=== PATIENT | female | born 1995 | race Two or more races ===

== ENCOUNTER 2018-11-14 18:55 | Emergency (ER) | payer SELFPAY ==
[2018-11-14 19:10] VITALS: BP 115/71
[2018-11-14] MEDS ORDERED: Sodium Chloride 0.9% 10 ML Syringe FLUSH PRN (20:08)
--- NOTE | 2018-11-14 20:15 | EDM.PDOC ---
ED HPI GENERAL MEDICAL PROBLEM - General Chief Complaint: Chest Pain Stated Complaint: CHEST PAIN AND PAIN IN LEFT ARM Time Seen by Provider: 11/14/18 19:55 Source of Information: Reports: Patient, RN, RN Notes Reviewed History Limitations: Reports: No Limitations - History of Present Illness INITIAL COMMENTS - FREE TEXT/NARRATIVE: Lesly Bermudez is a 23 yo female who presents for ED today complaining of chest pain that is started since this a.m. She reports the pain is in her left side of her chest and radiates up into her left neck and down her left arm. She reports that she has had similar symptoms in the past and has been an ongoing issue for years. She reports the pain is constant, tight and does lead to a sore shoulder and numb arm. She denies any recent from a period she states the pain has been worsening throughout the day and she has been worried. She does report shortness of breath which accompanies pain. Pain is noted to improve when she pushes on her left chest. Pain is rated at 8/10. Denies any chronic medications. She does have a history of anxiety and depression. She does not have a PCP. She has no known drug allergies. She denies any diarrhea , constipation, heartburn, vomiting. She does report occasional nausea. She also reports upper left quadrant abdominal pain. She denies any recent travel. She is not on any control. She denies any ETOH use. Treatments MACHINE MARKER: Reports: Other (see below) Other Treatments MACHINE MARKER: none Left Chest Pain Score (Numeric/FACES): 8 - Related Data Allergies Allergy/AdvReac Type Severity Reaction Status Date / Time No Known Allergies Allergy Verified 03/19/15 17:13 Home Meds: Home Meds . [No Known Home Meds] 09/27/15 [History] Past Medical History - Past Health History Medical/Surgical History: Denies Medical/Surgical History Psychiatric History: Reports: Depression Social & Family History - Tobacco Use Smoking Status *Q: Never Smoker - Caffeine Use Caffeine Use: Reports: None - Recreational Drug Use Recreational Drug Use: No ED ROS GENERAL - Review of Systems Review Of Systems: See Below Constitutional: Denies: Fever, Chills, Malaise, Weakness, Fatigue, Decreased Appetite HEENT: Reports: Other (Jaw pain ) Respiratory: Reports: Shortness of Breath (occasional ), Pleuritic Chest Pain. Denies: Wheezing, Cough, Sputum Cardiovascular: Reports: Chest Pain (left sided ). Denies: Dyspnea on Exertion , Lightheadedness, Palpitations Endocrine: Reports: No Symptoms GI/Abdominal: Reports: Abdominal Pain (LUQ ) : Reports: No Symptoms Musculoskeletal: Reports: Arm Pain Skin: Reports: No Symptoms Neurological: Reports: No Symptoms Psychiatric: Reports: Anxiety, Depression ED EXAM, GENERAL - Physical Exam Exam: See Below Exam Limited By: No Limitations General Appearance: Alert, WD/WN, No Apparent Distress Head: Atraumatic, Normocephalic Neck: Normal Inspection, Supple, Non-Tender, Full Range of Motion Respiratory/Chest: No Respiratory Distress, Lungs Clear, Normal Breath Sounds, No Accessory Muscle Use, Chest Non-Tender Cardiovascular: Normal Peripheral Pulses, Regular Rate, Rhythm, No Edema, No Gallop, No JVD, No Murmur, No Rub Peripheral Pulses: 4+: Radial (L), Radial (R), Dorsalis Pedis (L), Dorsalis Pedis (R) GI/Abdominal: Normal Bowel Sounds, Soft, Non-Tender, No Distention, No Abnormal Bruit (Female) Exam: Deferred Back Exam: Normal Inspection, Full Range of Motion, CVA Tenderness (L). No: CVA Tenderness (R) Extremities: Normal Inspection, Normal Range of Motion, Non-Tender, Normal Capillary Refill, No Pedal Edema Neurological: Alert, Oriented, CN II-XII Intact, Normal Cognition, Normal Gait, Normal Reflexes, No Motor/Sensory Deficits Psychiatric: Flat Affect Skin Exam: Warm, Dry, Intact, Normal Color, No Rash EKG INTERPRETATION EKG Date: 11/14/17 Time: 20:12 Rhythm: NSR Rate (Beats/Min): 64 [place]: Normal P-Wave: Present QRS: Normal ST-T: Normal QT: Normal Comparison: No Change (from prior EKG obtained 10/16/14) EKG Interpretation Comments: Sinus rhythm; Low voltage, precordial leads Course - Vital Signs Last Recorded V/S: Last Vital Signs Temp 98.7 F 11/14/18 19:07 Pulse 73 11/14/18 19:07 Resp 20 11/14/18 19:07 BP 115/71 11/14/18 19:07 Pulse Ox 98 11/14/18 19:07 - Orders/Labs/Meds Orders: Active Orders 24 hr Category Date Time Status EKG 12 Lead [EKG Documentation Completion] [RC] STAT Care 11/14/18 20:06 Active Peripheral IV Care [RC] . DIRECTED Care 11/14/18 20:09 Active Chest 2V [CR] Stat Exams 11/14/18 20:08 Taken Sodium Chloride 0.9% [Saline Flush] Med 11/14/18 20:08 Active 10 ml FLUSH ASDIRECTED PRN Peripheral IV Insertion Adult [OM.PC] Routine Oth 11/14/18 20:08 Ordered Medication Orders Sodium Chloride (Saline Flush) 10 ml FLUSH ASDIRECTED PRN PRN Reason: Keep Vein Open Last Admin: 11/14/18 20:44 Dose: 10 ml Labs: Laboratory Tests 11/14/18 11/14/18 11/14/18 Range/Units 20:17 20:25 20:25 WBC 8.54 (3.98-10.04) K/mm3 RBC 4.66 (3.98-5.22) M/mm3 Hgb 13.6 (11.2-15.7) gm/L Hct 41.1 (34.1-44.9) % MCV 88.2 (79.4-94.8) fl MCH 29.2 (25.6-32.2) pg MCHC 33.1 (32.2-35.5) g/dl RDW Std Deviation 41.3 (36.4-46.3) fL Plt Count 371 H (182-369) K/mm3 MPV 10.7 (9.4-12.3) fl Neut % (Auto) 51.5 (34.0-71.1) % Lymph % (Auto) 36.9 (19.3-51.7) % [place] % (Auto) 9.6 (4.7-12.5) % Eos % (Auto) 1.4 (0.7-5.8) Baso % (Auto) 0.4 (0.1-1.2) % Neut # (Auto) 4.40 (1.56-6.13) K/mm3 Lymph # (Auto) 3.15 (1.18-3.74) K/mm3 [place] # (Auto) 0.82 H (0.24-0.36) K/mm3 Eos # (Auto) 0.12 (0.04-0.36) K/mm3 Baso # (Auto) 0.03 (0.01-0.08) K/mm3 Sodium 141 (136-145) mEq/L Potassium 3.7 (3.5-5.1) mEq/L Chloride 106 (98-107) mEq/L Carbon Dioxide 25 (21-32) mEq/L Anion Gap 13.7 (5-15) BUN 8 (7-18) mg/dL Creatinine 0.6 (0.55-1.02) mg/dL Est Cr Clr Drug Dosing 125.92 mL/min Estimated GFR (MDRD) > 60 (>60) mL/min BUN/Creatinine Ratio 13.3 L (14-18) Glucose 76 (74-106) mg/dL Calcium 9.6 (8.5-10.1) mg/dL Total Bilirubin 0.4 (0.2-1.0) mg/dL AST 23 (15-37) U/L ALT 34 (14-59) U/L Alkaline Phosphatase 111 (46-116) U/L Troponin I < 0.017 (0.00-0.056) ng/mL Total Protein 8.6 H (6.4-8.2) g/dl Albumin 4.2 (3.4-5.0) g/dl Globulin 4.4 gm/dL Albumin/Globulin Ratio 1.0 (1-2) Lipase 107 (73-393) U/L Urine Color Yellow (Yellow) Urine Appearance Clear (Clear) Urine pH 7.0 (5.0-8.0) Ur Specific Hydes 1.015 (1.005-1.030) Urine Protein Negative (Negative) Urine Glucose (UA) Negative (Negative) Urine Ketones Negative (Negative) Urine Occult Blood 1+ H (Negative) Urine Nitrite Negative (Negative) Urine Bilirubin Negative (Negative) Urine Urobilinogen 0.2 (0.2-1.0) Ur Leukocyte Esterase Trace H (Negative) Urine RBC 0-5 (0-5) /hpf Urine WBC 0-5 (0-5) /hpf Ur Epithelial Cells 5-10 H (0-5) /hpf Urine Bacteria Few (FEW) /hpf Urine Mucus Few (FEW) /hpf Meds: Medications Generic Name Dose Route Start Last Admin Trade Name Freq PRN Reason Stop Dose Admin Sodium Chloride 10 ml 11/14/18 20:08 11/14/18 20:44 Saline Flush FLUSH 10 ml ASDIRECTED PRN Administration Keep Vein Open - Re-Assessments/Exams Free Text/Narrative Re-Assessment/Exam: Initial workup will include 12-lead EKG, CBC, CMP, lipase, troponin, UA. Will also order a chest x-ray. 11/14/18 20:18 Labs return. There is no leukocytosis with white count of 8.54. Hemoglobin 13.6. Platelets are low elevated at 371. Neutrophils are normal at 51.5. Letter lites look good. Creatinine 0.6. GFR greater than 60. Liver enzymes looked good and with all within normal limits with an AST of 23, ALT of 34, alkaline phosphatase 111. Troponin is negative at less than 0.017. Protein is elevated a 0.6. Albumin good at 4.2. Lipase 107. 11/14/18 21:15 Chest xray reviewed by myself and Dr. Devlin shows nothing acute. 11/14/18 21:38 Departure - Departure Time of Disposition: 21:40 Disposition: Home, Self-Care 01 Condition: Good Clinical Impression: Costal chondritis Instructions: Costochondritis, [id number], Chest Wall Pain, [id number] Referrals: PCP,None [Primary Care Provider] - Forms: ED Department Discharge Additional Instructions: Your evaluated in the emergency room today for chest pain which radiates up into your neck and left arm. He also reported some right upper quadrant pain in her abdomen. Your workup was completely normal. Chest x-ray looked good. All labs and vital signs looked good. You do not have urinary tract infection. Labs for your heart looked good. At this time it is likely your pain originates in your ribs. This is likely true as you report it gets better when you press on her chest. We suggest Tylenol or ibuprofen per the consulting sales manager's directions for pain. Should symptoms continue you should establish with a primary care provider and be seen by them. Should symptoms worsen or change you can be seen by a primary care provider, locking clinic, or return to the ER. - My Orders Last 24 Hours: My Active Orders 11/14/18 20:06 EKG 12 Lead [EKG Documentation Completion] [RC] STAT 11/14/18 20:08 Chest 2V [CR] Stat Sodium Chloride 0.9% [Saline Flush] 10 ml FLUSH ASDIRECTED PRN Peripheral IV Insertion Adult [OM.PC] Routine 11/14/18 20:09 Peripheral IV Care [RC] . DIRECTED - Assessment/Plan Last 24 Hours: My Active Orders 11/14/18 20:06 EKG 12 Lead [EKG Documentation Completion] [RC] STAT 11/14/18 20:08 Chest 2V [CR] Stat Sodium Chloride 0.9% [Saline Flush] 10 ml FLUSH ASDIRECTED PRN Peripheral IV Insertion Adult [OM.PC] Routine 11/14/18 20:09 Peripheral IV Care [RC] . DIRECTED
--- NOTE | 2018-11-15 07:57 | CR ---
Chest: Two views of the chest are obtained. Comparison: Prior chest x-ray of 10/16/14. Heart size and mediastinum are normal. Lungs are clear. Nodular density is noted within the left upper lung most likely due to costochondral calcification. Bony structures are unremarkable. Impression: 1. Nothing acute is seen on two-view chest x-ray. Diagnostic code #2
== END 2018-11-14 21:55 | disposition home or self-care (01) ==
LOC: JD.ED 18:55
DX: M94.0 Chondrocostal junction syndrome [Tietze] (principal)
CPT/HCPCS: 36415; 71046; 71046-26; 80053; 81001; 83690; 84484; 85025; 93005; 93010; 99283; 99285-25

== ENCOUNTER 2019-03-23 13:09 | Emergency (ER) | payer SELFPAY ==
[2019-03-23 13:28] VITALS: BP 145/75
[2019-03-23] MEDS ORDERED: Sodium Chloride 0.9% 10 ML Syringe FLUSH PRN (14:01)
[2019-03-23] MEDS ORDERED: Dexamethasone 10 MG/ML SDV IVPUSH ONE (14:01)
[2019-03-23] MEDS ORDERED: Iopamidol 612 MG/ML 100 ML Bottle IVPUSH ONE (14:10)
[2019-03-23] MEDS ORDERED: Sodium Chloride 0.9% 10 ML Syringe FLUSH ONE (14:10)
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
--- NOTE | 2019-03-23 16:16 | CT ---
Head CT Technique: Multiple axial sections through the brain were obtained. Intravenous contrast was not utilized. Comparison: No prior intracranial imaging. Findings: Ventricles along with basal cisterns and sulci over the convexities are within normal limits for the patient's age. No abnormal parenchymal densities are seen. No evidence of intracranial hemorrhage. No midline shift or mass effect is seen. Bone window settings were reviewed which shows no acute calvarial abnormality. Visualized sinuses are clear. Impression: 1. Nothing acute is appreciated on noncontrast head CT exam. Diagnostic code #1
--- NOTE | 2019-03-23 16:16 | CT ---
CT abdomen and pelvis Technique: Multiple axial sections were obtained from above the dome of the diaphragm inferiorly through the pubic symphysis. Intravenous contrast was given. No oral contrast was utilized. Findings: Small portion of the visualized lung bases show nothing acute. Liver contains no focal abnormality. Spleen appears within normal limits. Adrenal glands show no nodule. Pancreas shows no discrete abnormality. Aorta shows no aneurysm. No retroperitoneal adenopathy or mesenteric abnormalities are seen. No pelvic mass or adenopathy is seen. Appendix is normal in size. No free fluid or inflammatory change is seen. Bone window settings were reviewed which shows no acute osseous abnormality. Impression: 1. Nothing acute is identified on CT study of the abdomen and pelvis. Diagnostic code #1
--- NOTE | 2019-03-23 16:20 | CT ---
CT neck Technique: Multiple axial sections were obtained from above the external auditory canals inferiorly to the top of the lungs. Intravenous contrast was utilized. Reconstructed coronal and sagittal images were reviewed. Findings: Paranasal sinuses are clear. Mastoid sinuses are also clear. Parotid and submandibular salivary glands appear within normal limits. Thyroid gland appears within normal limits. Small normal-appearing lymph nodes are noted. No hematoma or other abnormality is appreciated. Bone window settings were reviewed which shows no acute osseous abnormality. Impression: 1. No abnormality is appreciated on CT study of the neck. Diagnostic code #1
--- NOTE | 2019-03-24 07:33 | CR ---
Chest: Two views of the chest were obtained. Comparison: Prior chest x-ray of 11/14/18. Heart size and mediastinum are normal. Lungs are clear with no acute parenchymal change. Bony structures appear within normal limits for the patient's age. Impression: 1. Nothing acute is appreciated on two-view chest x-ray. Diagnostic code #1
--- NOTE | 2019-03-24 08:18 | CR ---
Left knee: Four views of the left knee were obtained. Comparison: No previous study. Mild medial joint space narrowing is seen compared to the lateral joint. No joint effusion is identified. No fracture or other abnormality is appreciated. Impression: 1. Mild medial joint space narrowing as described above. 2. Nothing acute is appreciated on left knee exam. Diagnostic code #2
== END 2019-03-23 17:40 | disposition home or self-care (01) ==
LOC: JD.ED 13:09
DX: Z04.71 Encounter for examination and observation following alleged adult physical abuse (principal)
CPT/HCPCS: 36415; 70450; 70491; 71046; 73564; 74177; 80053; 84703; 85025; 96374; 99284; J1100; Q9967

== ENCOUNTER 2020-04-14 07:15 | Emergency (ER) | payer SELFPAY ==
--- NOTE | 2020-04-14 07:41 | EDM.PDOC ---
ED HPI GENERAL MEDICAL PROBLEM - General Chief Complaint: ENT Problem Stated Complaint: SORE THROAT FEVER HEADACHE Time Seen by Provider: 04/14/20 07:41 Source of Information: Reports: Patient History Limitations: Reports: No Limitations - History of Present Illness INITIAL COMMENTS - FREE TEXT/NARRATIVE: 24-year-old female presents to the ED with acute onset of severe sore throat starting yesterday morning April 14. Pain does radiate up into both ears with swallowing. Associated fever but no chills. Still has her tonsils. Denies nausea vomiting. Decreased appetite however. Onset: Sudden Onset Date: 04/13/20 Duration: Hour(s):, Getting Worse Location: Reports: Face (Sore throat. Difficulty swallowing) Quality: Reports: Ache, Burning, Sharp, Stabbing Severity: Moderate (With swallowing) Improves with: Reports: None Worsens with: Reports: None Context: Reports: Other (Spontaneous occurrence). Denies: Activity, Exercise, Lifting, Sick Contact, Trauma Associated Symptoms: Reports: Fever/Chills, Loss of Appetite, Malaise. Denies: Confusion, Chest Pain, Cough, cough w sputum, Nausea/Vomiting, Seizure, Sh ortness of Breath, Syncope, Weakness Treatments FINANCIAL UNDERWRITER: Reports: Acetaminophen Throat Pain Score (Numeric/FACES): 8 - Related Data Allergies Allergy/AdvReac Type Severity Reaction Status Date / Time No Known Allergies Allergy Verified 04/14/20 08:17 Home Meds: Home Meds Amoxicillin/Clavulanate K [Augmentin 500-125 MG] 1 tab PO BID #16 tablet 04/14/20 [Rx] Past Medical History - Past Health History Medical/Surgical History: Denies Medical/Surgical History Psychiatric History: Reports: Anxiety, Depression Social & Family History - Family History GI: Reports: Other (See Below) Other GI Family History: stomach/colon problems - Caffeine Use Caffeine Use: Reports: None - Living Situation & Occupation Living situation: Reports: , with Family Occupation: Unemployed ED ROS ENT - Review of Systems Review Of Systems: See Below Constitutional: Reports: Fever, Malaise, Weakness, Fatigue, Decreased Appetite. Denies: Chills HEENT: Reports: Ear Pain (Pain in ears with swallowing), Throat Pain Respiratory: Reports: No Symptoms Cardiovascular: Reports: No Symptoms Endocrine: Reports: No Symptoms GI/Abdominal: Reports: Decreased Appetite : Reports: No Symptoms Musculoskeletal: Reports: No Symptoms Skin: Reports: No Symptoms Neurological: Reports: No Symptoms Psychiatric: Reports: No Symptoms Hematologic/Lymphatic: Reports: No Symptoms Immunologic: Reports: No Symptoms ED EXAM, ENT - Physical Exam Exam: See Below Exam Limited By: No Limitations General Appearance: Alert, WD/WN, No Apparent Distress, Other (She does feel warm to palpation. Temperatures recorded is 37.1 by nursing staff. Heart rate is 81 and sinus respiratory was 16 with O2 sats of 100% on room air. BP 10/28/1975.) Eye Exam: Bilateral Eye: Normal Inspection, PERRL Ears: Other (Patient has scarring of both tympanic membranes combined with previous myringotomy tube insertions which she does not recall. They are not infected.) Mouth/Throat: Throat Pain, Tonsillar Erythema, Tonsillar Exudates, Tonsillar Swelling. No: Trismus, Uvular Deviation, Uvular Edema Head: Atraumatic, Normocephalic Neck: Normal Inspection, Supple, Non-Tender, Full Range of Motion. No: Lymphadenopathy (L), Lymphadenopathy (R) Respiratory/Chest: No Respiratory Distress, Lungs Clear, Normal Breath Sounds, No Accessory Muscle Use, Chest Non-Tender Cardiovascular: Normal Peripheral Pulses, Regular Rate, Rhythm, No Edema, No Gallop, No Murmur, No Rub GI/Abdominal: Normal Bowel Sounds, Soft, Non-Tender, No Organomegaly, No Abnormal Bruit, No Mass, Pelvis Stable. No: Splenomegaly Extremities: Normal Inspection, Normal Range of Motion, Non-Tender, No Pedal Edema Course - Vital Signs Last Recorded V/S: Last Vital Signs Temp 37.1 C 04/14/20 08:11 Pulse 81 04/14/20 08:11 Resp 16 04/14/20 08:11 BP 131/76 04/14/20 08:11 Pulse Ox 100 04/14/20 08:11 - Radiology Interpretation Free Text/Narrative:: 24-year-old female presents to the ED with acute onset of sore throat starting yesterday morning and worse this morning. Very painful to swallow. Associated development of a fever. She feels warmer than the 37.1 degrees recorded by nursing staff. Examination reveals normal ears. Clinically she has bilateral follicular tonsillitis with exudate. Minimal bilateral submandibular adenopathy. Lungs are clear to auscultation percussion no anterior posterior chain adenopathy to suggest mono. Treatment will be Augmentin 500/125 mg tablet twice daily for the next 8 days to clear up infection. She denies any possibility of . Will use Motrin 600 mg every 6 hours necessary for pain and reduction of inflammation and fever relief. - Re-Assessments/Exams Free Text/Narrative Re-Assessment/Exam: 04/14/20 09:45: Strep screen is positive for group A strep. Departure - Departure Time of Disposition: 08:33 Disposition: Home, Self-Care 01 Condition: Fair Clinical Impression: Tonsillitis with exudate - Discharge Information *PRESCRIPTION DRUG MONITORING PROGRAM REVIEWED*: Not Applicable *COPY OF PRESCRIPTION DRUG MONITORING REPORT IN PATIENT GEOFF: Not Applicable Prescriptions: Amoxicillin/Clavulanate K [Augmentin 500-125 MG] 1 tab PO BID #16 tablet Instructions: Tonsillitis, [id number] Referrals: PCP,None [Primary Care Provider] - Forms: ED Department Discharge Additional Instructions: Evaluation in the emergency room this morning in regards to sore throat since yesterday morning worsening over the last 24 hours. Examination reveals bilateral follicular tonsillitis with exudate or pus on both tonsils. Mild bilateral submandibular adenopathy. Associated low-grade fever. Continue Motrin 600 mg every 6 hours to reduce pain and inflammation and fever. Antibiotic is to be Augmentin 500/125 mg tablet twice daily for the next 8 days to clear up infection. Expect marked improvement over the next 36 to 48 hours. Sepsis Event Note (ED) - Focused Exam Vital Signs: Vital Signs Temp Pulse Resp BP Pulse Ox 04/14/20 08:11 37.1 C 81 16 131/76 100
[2020-04-14 08:12] VITALS: BP 131/76; PULSE 81
== END 2020-04-14 08:46 | disposition home or self-care (01) ==
LOC: JD.ED 07:15
DX: J03.90 Acute tonsillitis, unspecified (principal)
CPT/HCPCS: 87430; 99283

== ENCOUNTER 2020-12-17 09:04 | Emergency (ER) | payer SELFPAY ==
[2020-12-17] MEDS ORDERED: LORazepam 1 MG Tab PO ONE (10:25)
--- NOTE | 2020-12-17 10:30 | EDM.PDOCBH ---
ED HPI GENERAL MEDICAL PROBLEM - General Chief Complaint: Behavioral/Psych Stated Complaint: NOT SLEEPING SINCE THURSDAY Time Seen by Provider: 12/17/20 10:15 Source of Information: Reports: Patient History Limitations: Reports: No Limitations - History of Present Illness INITIAL COMMENTS - FREE TEXT/NARRATIVE: 25-year-old female presents to the ED with a friend. History suggest that she has recently broke up from her boyfriend of 3 years duration. Apparently he just up and left. She has no children. She is currently not employed. She is not sleeping she is not eating and not functioning very well. She does admit to intermittent suicidal ideation but has no definitive plan and the suicidal ideation is only been once or twice in the last week. She states she simply cannot shut off her mind to sleep for about the last 1 week. She estimates her weight is 114 pounds. She denies possibility of . Onset: Sudden Onset Date: 12/09/20 Duration: Day(s):, Constant, Getting Worse Location: Reports: Generalized, Other (Severe insomnia. Loss of appetite.) Quality: Reports: Other Severity: Severe (Severe insomnia) Improves with: Reports: None Worsens with: Reports: None Context: Denies: Activity, Exercise, Lifting, Sick Contact, Trauma, Other Associated Symptoms: Reports: Loss of Appetite, Malaise. Denies: No Other Symptoms, Confusion, Chest Pain, Cough, cough w sputum, Diaphoresis, Fever/Chills, Headaches, Nausea/Vomiting, Rash, Seizure, Syncope Treatments MINE PATROL: Reports: Other (see below) (None.) Lower Back Pain Score (Numeric/FACES): 10 - Related Data Allergies Allergy/AdvReac Type Severity Reaction Status Date / Time No Known Allergies Allergy Verified 12/17/20 09:18 Home Meds: Home Meds clonazePAM [Clonazepam] 1 mg PO DAILY #10 tablet 12/17/20 [Rx] Past Medical History - Past Health History Medical/Surgical History: Denies Medical/Surgical History Psychiatric History: Reports: Anxiety, Depression Social & Family History - Family History GI: Reports: Other (See Below) Other GI Family History: stomach/colon problems - Tobacco Use Tobacco Use Status *Q: Never Tobacco User - Caffeine Use Caffeine Use: Reports: None - Recreational Drug Use Recreational Drug Use: No - Living Situation & Occupation Living situation: Reports: , with Family Occupation: Unemployed ED ROS GENERAL - Review of Systems Review Of Systems: See Below Constitutional: Reports: Malaise, Weakness, Fatigue, Decreased Appetite, Weight Loss. Denies: Fever, Chills HEENT: Reports: No Symptoms Respiratory: Reports: No Symptoms Cardiovascular: Reports: No Symptoms Endocrine: Reports: Fatigue GI/Abdominal: Reports: Constipation (Held), Decreased Appetite : Reports: No Symptoms Musculoskeletal: Reports: Other Skin: Reports: No Symptoms Neurological: Reports: No Symptoms Psychiatric: Reports: No Symptoms Hematologic/Lymphatic: Reports: No Symptoms Immunologic: Reports: No Symptoms ED EXAM, BEHAVIORAL HEALTH - Physical Exam Exam: See Below Exam Limited By: No Limitations General Appearance: Alert, WD/WN, Mild Distress, Other (Is very quiet. Her friend helps answer a lot of the questions. Temperature is 36.6 degrees. Heart rate 93 and sinus respiratory 16 with sats of 96% room air BP 145 106 question the validity of this.) Eye Exam: Bilateral Eye: Normal Inspection (No scleral icterus or blepharal pallor.), PERRL Ears: Normal TMs Throat/Mouth: Normal Oropharynx, Other (Dry and coated this morning no oropharyngeal infection.) Head: Normocephalic, Sinus Tenderness Neck: Normal Inspection, Supple, Non-Tender, Full Range of Motion. No: Carotid Bruit, Lymphadenopathy (L), Lymphadenopathy (R), Thyromegaly Respiratory/Chest: No Respiratory Distress, Lungs Clear, Normal Breath Sounds, No Accessory Muscle Use Cardiovascular: Normal Peripheral Pulses, Regular Rate, Rhythm, No Edema, No Gallop, No Murmur, No Rub GI/Abdominal: Normal Bowel Sounds, Soft, Non-Tender, No Organomegaly, No Abnormal Bruit, No Mass, Pelvis Stable Back Exam: Normal Inspection, Full Range of Motion, Other (Advised home exercise program). No: CVA Tenderness (L), CVA Tenderness (R) Extremities: Normal Inspection ( and Motrin as needed), Normal Range of Motion, Non-Tender, No Pedal Edema Neurological: Alert, CN II-XII Intact, Normal Cognition, No Motor/Sensory Deficits, Oriented x 3. No: Normal Mood/Affect Psychiatric: Alert, Normal Cognition, Flat Affect. No: Normal Affect, Normal Mood, Oriented Skin Exam: Warm, Dry, Intact, Normal color, No rash COURSE, BEHAVIORAL HEALTH COMP - Course Vital Signs: Last Vital Signs Temp 36.4 C 12/17/20 10:47 Pulse 68 12/17/20 10:47 Resp 16 12/17/20 10:47 BP 125/88 12/17/20 10:47 Pulse Ox 98 12/17/20 10:47 Orders, Labs, Meds: Medications Discontinued Medications Generic Name Dose Route Start Last Admin Trade Name Watson PRN Reason Stop Dose Admin Lorazepam 1 mg 12/17/20 10:25 12/17/20 10:40 Lorazepam 1 Mg Tab PO 12/17/20 10:26 Not Given ONETIME ONE Re-Assessment/Re-Exam: 25-year-old female presents to the ED primarily due to insomnia. She has been unable to sleep for over a week. She is experiencing a good deal of life situation problems. Her boyfriend of 3 years broke up with her a week or 10 days ago and left. She is not sure where he is. She is currently not employed. She has not slept for at least a week. Very poor appetite. Does admit to intermittent suicidal ideation twice in the last week with no definitive plan. She is otherwise in good health takes no medications. She has a history of some depression and anxiety in the past. Is not seeing a counselor at present. Has no primary care physician. Examination was normal. Plan Ativan 1 mg p.o. now to ensure some sleep this morning and this afternoon. Then we wrote a prescription for clonazepam 1 mg to be taken at bedtime as needed to help sleep for the next 10 days. She can use this intermittently. Advised follow-up in the clinic next week to see how she is doing. She may well need an antidepressant such as citalopram to help bring her anxiety under control. Also to make sure that she is not becoming more depressed. Re-Assessment/Re-Exam Date: 12/17/20 (10:38: Patient told the nurse she was did not want to take Ativan. Therefore the order will be canceled.) Departure - Departure Time of Disposition: 10:26 Disposition: Home, Self-Care 01 Condition: Fair Clinical Impression: Insomnia Qualifiers: Insomnia type: unspecified Qualified Code(s): G47.00 - Insomnia, unspecified - Discharge Information *PRESCRIPTION DRUG MONITORING PROGRAM REVIEWED*: Not Applicable *COPY OF PRESCRIPTION DRUG MONITORING REPORT IN PATIENT GEOFF: Not Applicable Prescriptions: clonazePAM [Clonazepam] 1 mg PO DAILY #10 tablet Instructions: Insomnia Referrals: Angel Bernardo MD [Primary Care Provider] - Forms: ED Department Discharge Additional Instructions: Evaluation in the emergency room today in regards to recent significant life stressors which have created problems sleeping ,eating and functioning normally. She did intermittent suicidal ideation thoughts. It is felt that the soriano to making you feel better is to ensure a good night`s sleep. You were given Ativan 1 mg by mouth in the ED and it will start to work within about an hour and allow you to sleep some this morning and a better this afternoon. After this you may use clonazepam 1 mg at bedtime as needed to help sleep for the next 2 to 3 days then hopefully you will be able to regain normal sleep habits. Suggest follow-up in clinic next week with a primary care provider. Suggest arranging an appoint with Dr Bruno. 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 Please phone [phone] to make an appointment today. Ideally I would like you to be seen in about a week's time. Of course return to the emergency room at any time if you are feeling wo rse, not sleeping or feeling more suicidal. Sepsis Event Note (ED) - Evaluation Sepsis Screening Result: No Definite Risk - Focused Exam Vital Signs: Vital Signs Temp Pulse Resp BP Pulse Ox 12/17/20 10:47 36.4 C 68 16 125/88 98 12/17/20 09:16 36.6 C 93 16 145/106 H 94 L
[2020-12-17 10:50] VITALS: BP 125/88; PULSE 68
[2020-12-17] MEDS ORDERED: Norepinephrine 4 MG in Dextrose 5% in Water 246 ML IV SCH ×2 (11:00)
== END 2020-12-17 10:50 | disposition home or self-care (01) ==
LOC: JD.ED 09:04
DX: G47.00 Insomnia, unspecified (principal); R53.81 Other malaise; R53.1 Weakness; R63.0 Anorexia; R53.83 Other fatigue; K59.00 Constipation, unspecified
CPT/HCPCS: 99283

== ENCOUNTER 2021-01-22 14:28 | Emergency (ER) | payer SELFPAY ==
[2021-01-22 14:57] VITALS: BP 134/94; PULSE 83
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
[2021-01-22 17:38] LABS: ACETAMINOPHEN 0 ug/mL (10-30)
[2021-01-22] MEDS ORDERED: LORazepam 1 MG Tab PO ONE (19:34)
== END 2021-01-22 19:40 ==
LOC: JD.ED 14:28
DX: F32.9 Major depressive disorder, single episode, unspecified (principal); Z20.822 Contact with and (suspected) exposure to COVID-19
CPT/HCPCS: 36415; 80053; 80143; 80179; 80306; 80307; 81025; 84443; 85007; 85027; 99283; 99285; U0002

== ENCOUNTER 2021-01-23 11:06 | Emergency (ER) | payer SELFPAY ==
[2021-01-23 11:20] VITALS: BP 131/84; PULSE 80
--- NOTE | 2021-01-23 11:44 | EDM.PDOCBH ---
ED HPI GENERAL MEDICAL PROBLEM - General Chief Complaint: Behavioral/Psych Stated Complaint: MENTAL EVAL Time Seen by Provider: 01/23/21 11:10 Source of Information: Reports: Patient History Limitations: Reports: No Limitations - History of Present Illness INITIAL COMMENTS - FREE TEXT/NARRATIVE: 25-year-old female presents from the senior living with complaints of suicidal ideation. The patient was seen in the emergency department yesterday after she phoned the police because she was having thoughts of harming herself. The patient is not very forthcoming with information today. From the provider note from yesterday the patient has recently broken up with her boyfriend, lost her job and lost her home. She has nowhere to live and feels like she has nothing to live for. Apparently per her sister's report she has been declining significantly of recent and her emotional state. She does have a history of previous suicide attempt x2. The first 1 she did try to hang herself with a cord of a religion department chair and the other she tried to jump out of a moving vehicle. When she was in the emergency department yesterday the patient was refusing any blood work or treatment and was a flight risk so a 24-hour hold was placed on her. Nursing staff was able to eventually get lab work from her after several hours. She was then sent to the senior living. She was brought back to the emergency department today as there is a bed available for her at [facility]. Labs were all completed yesterday and were essentially unremarkable. WBC 8.9, hemoglobin 14.6, hematocrit 44.7, platelet count 453, sodium 142, potassium 3.6, carbon dioxide 26, anion gap 17.6, BUN 10, creatinine 0.7, glucose 84, AST 17, ALT 20, alk phos 79, TSH 1.217, salicylate level was less than 0.2, acetaminophen level was 0, urine drug screen was negative other than positive for marijuana. Alcohol level was 0 and Covid swab was negative. Urine was negative as well. I spoke with Dr. Ram, at [facility] And he agrees to accept the patient in his care. He states that at this time we do not have to repeat lab work as it was so difficult to obtain yesterday in the emergency department and the patient has been incarcerated since leaving the emergency department. Commitment paperwork has been completed by Dr. Yossi Dia, and the patient will be transported by the classroom assistant's department. Of note, the patient is still very much in denial and states she does not need treatment and does not consent to transportation, however the hospital social services aide was in to visit with the patient and does notify her that committal paperwork is in place. - Related Data Allergies Allergy/AdvReac Type Severity Reaction Status Date / Time No Known Allergies Allergy Verified 01/22/21 14:57 Home Meds: Home Meds . [No Known Home Meds] 01/23/21 [History] Past Medical History - Past Health History Medical/Surgical History: Denies Medical/Surgical History Psychiatric History: Reports: Anxiety, Depression Social & Family History - Family History Family Medical History: No Pertinent Family History GI: Reports: Other (See Below) Other GI Family History: stomach/colon problems - Tobacco Use Tobacco Use Status *Q: Never Tobacco User - Caffeine Use Caffeine Use: Reports: None - Living Situation & Occupation Living situation: Reports: , with Family Occupation: Unemployed ED ROS GENERAL - Review of Systems Review Of Systems: Comprehensive ROS is negative, except as noted in HPI. ED EXAM, BEHAVIORAL HEALTH - Physical Exam Exam: See Below Exam Limited By: Uncooperative General Appearance: Alert, WD/WN, No Apparent Distress Ears: Normal External Exam, Hearing Grossly Normal Nose: Normal Inspection Throat/Mouth: Normal Inspection, Normal Lips, Normal Voice, No Airway Compromise Head: Atraumatic Neck: Normal Inspection Respiratory/Chest: No Respiratory Distress, No Accessory Muscle Use Cardiovascular: Normal Peripheral Pulses, Regular Rate, Rhythm GI/Abdominal: No Distention (Female) Exam: Deferred Rectal (Female) Exam: Deferred Back Exam: Normal Inspection Extremities: Normal Inspection Neurological: Alert, Oriented x 3, Other (flat affect, poor eye contact) Psychiatric: Alert, Oriented, Flat Affect, Tearful, Poor Eye Contact, Withdrawn. No: Threatening Behavior Skin Exam: Warm, Dry, Intact, Normal color, No rash COURSE, BEHAVIORAL HEALTH COMP - Course Vital Signs: Last Vital Signs Temp 97.8 F 01/23/21 11:17 Pulse 80 01/23/21 11:17 Resp 16 01/23/21 11:17 BP 131/84 01/23/21 11:17 Pulse Ox 100 01/23/21 11:17 Departure - Departure Time of Disposition: 11:46 Disposition: DC/Tfer to Psych Hosp/Unit 65 Condition: Good Clinical Impression: Mood disorder - Discharge Information Referrals: PCP,None [Primary Care Provider] - Sepsis Event Note (ED) - Evaluation Sepsis Screening Result: No Definite Risk - Focused Exam Vital Signs: Vital Signs Temp Pulse Resp BP Pulse Ox 01/23/21 11:17 97.8 F 80 16 131/84 100
== END 2021-01-23 11:57 ==
LOC: JD.ED 11:06
DX: F39 Unspecified mood [affective] disorder (principal)
CPT/HCPCS: 99282; 99285

== ENCOUNTER 2023-04-28 15:33 | Emergency (ER) | payer SELFPAY ==
[2023-04-28 15:49] VITALS: BP 138/96; PULSE 116
[2023-04-28] MEDS ORDERED: LORazepam 1 MG Tab PO ONE (16:25)
== END 2023-04-28 16:48 | disposition left against medical advice (07) ==
LOC: JD.ED 15:33
DX: F39 Unspecified mood [affective] disorder (principal)
CPT/HCPCS: 99283

== ENCOUNTER 2023-05-08 13:10 | Emergency (ER) | payer MEDICAID ==
[2023-05-08 14:25] LABS: BASOPHILS ABSOLUTE AUTO 0.02 K/mm3 (0.01-0.08); BASOPHILS PERCENT AUTO 0.2 % (0.1-1.2); EOSINOPHILS ABSOLUTE AUTO 0.02 K/mm3 (0.04-0.36); EOSINOPHILS PERCENT AUTO 0.2 (0.7-5.8); HEMATOCRIT 41.1 % (34.1-44.9); HEMOGLOBIN 13.7 gm/dl (11.2-15.7); IMMATURE GRAN ABSOLUTE AUTO 0.02 K/mm3 (0.00-0.10); IMMATURE GRAN PERCENT AUTO 0.2 % (<=1.0); LYMPHOCYTES ABSOLUTE AUTO 1.92 K/mm3 (1.18-3.74); LYMPHOCYTES PERCENT AUTO 20.1 % (19.3-51.7); MEAN CORPUSCULAR HEMOGLOBIN 30.2 pg (25.6-32.2); MEAN CORPUSCULAR HGB CONC 33.3 g/dl (32.2-35.5); MEAN CORPUSCULAR VOLUME 90.5 fl (79.4-94.8); MEAN PLATELET VOLUME 10.5 fl (9.4-12.3); MONOCYTES PERCENT AUTO 6.3 % (4.7-12.5); NEUTROPHILS ABSOLUTE AUTO 6.97 K/mm3 (1.56-6.13); PLATELET COUNT,PLT 446 K/mm3 (182-369); RED BLOOD CELL COUNT 4.54 M/mm3 (3.98-5.22); WHITE BLOOD CELL COUNT,WBC 9.55 K/mm3 (3.98-10.04)
[2023-05-08 15:01] LABS: A/G RATIO 1.1 (1-2); ALBUMIN 4.2 g/dl (3.4-5.0); ANION GAP 12.1 (5-15); BILIRUBIN TOTAL 0.4 mg/dL (0.2-1.0); CALCIUM 9.2 mg/dL (8.5-10.1); CREATININE 0.6 mg/dL (0.55-1.02); EST CRCL DRUG DOSING (CG) 5.25 mL/min; POTASSIUM,K 4.1 mEq/L (3.5-5.1); PROTEIN TOTAL,TP 8.2 g/dl (6.4-8.2); TSH 0.777 uIU/mL (0.358-3.74)
[2023-05-08 15:43] LABS: APPEARANCE,URINE CLEAR (Clear); BILIRUBIN,URINE NEGATIVE (Negative); COLOR,URINE YELLOW (Yellow); GLUCOSE,URINE NEGATIVE (Negative); KETONES,URINE NEGATIVE (Negative); LEUKOCYTE ESTERASE,URINE NEGATIVE (Negative); NITRITE,URINE NEGATIVE (Negative); OCCULT BLOOD,URINE 1+ (Negative); PH,URINE 8.5 (5.0-8.0); PROTEIN,URINE TRACE (Negative); UROBILINOGEN,URINE 0.2 (0.2-1.0)
[2023-05-08 16:01] LABS: AMPHETAMINES SCREEN, URINE NEGATIVE (CUTOFF=500); BARBITURATE SCREEN,URINE NEGATIVE (CUTOFF=200); BENZODIAZEPINES SCREEN,URINE NEGATIVE (CUTOFF=150); BUPRENORPHINE SCREEN,URINE NEGATIVE (CUTOFF=10); METHADONE SCREEN, URINE NEGATIVE (CUTOFF=200); METHAMPHETAMINES SCREEN, URINE NEGATIVE (CUTOFF=500); OXYCODONE SCREEN,URINE NEGATIVE (CUT0FF=100); PROPOXYPHENE SCREEN,URINE NEGATIVE (CUTOFF=300); THC SCREEN,URINE 20 NG/ML NEGATIVE (CUTOFF=50)
[2023-05-08 16:08] LABS: BACTERIA,URINE FEW /hpf (FEW); MUCUS,URINE FEW /hpf (FEW); WBC,URINE 0-5 /hpf (0-5)
[2023-05-08] MEDS ORDERED: QUEtiapine 25 MG Tab PO ONE (19:15)
[2023-05-08 21:03] VITALS: BP 110/72; PULSE 60
== END 2023-05-08 19:42 | disposition home or self-care (01) ==
LOC: JD.ED 13:10
DX: R44.0 Auditory hallucinations (principal)
CPT/HCPCS: 36415; 80053; 80143; 80179; 80306; 80307; 81001; 81025; 84443; 85025; 99284; A9270; 99283

== ENCOUNTER 2023-06-08 12:22 | Emergency (ER) | payer MEDICAID | END 2023-06-08 13:47 | disposition left against medical advice (07) | LOC: JD.ED 12:22 | DX: Z53.21 Procedure and treatment not carried out due to patient leaving prior to being seen by health care provider (principal) ==

== ENCOUNTER 2023-06-28 13:50 | Emergency (ER) | payer MEDICAID ==
[2023-06-28 15:13] VITALS: BP 105/55; PULSE 60
== END 2023-06-28 15:25 | disposition home or self-care (01) ==
LOC: JD.ED 13:50
DX: Z00.00 Encounter for general adult medical examination without abnormal findings (principal); Z79.899 Other long term (current) drug therapy
CPT/HCPCS: 99282

== ENCOUNTER 2023-07-22 16:02 | Emergency (ER) | payer MEDICAID ==
[2023-07-22 16:18] VITALS: BP 135/90; PULSE 115
== END 2023-07-22 16:30 | disposition left against medical advice (07) ==
LOC: JD.ED 16:02
DX: Z53.21 Procedure and treatment not carried out due to patient leaving prior to being seen by health care provider (principal)

== ENCOUNTER 2023-07-22 17:08 | Emergency (ER) | payer MEDICAID ==
[2023-07-22] MEDS ORDERED: Haloperidol Lactate 5 MG/ML SDV IM ONE (17:51)
[2023-07-22] MEDS ORDERED: Haloperidol Lactate 5 MG/ML SDV ONE (17:51)
[2023-07-22] MEDS ORDERED: LORazepam 2 MG/ML SDV ONE (18:03)
[2023-07-22] MEDS ORDERED: LORazepam 2 MG/ML SDV IM ONE (18:05)
[2023-07-22 18:45] LABS: BASOPHILS PERCENT AUTO 0.4 % (0.0-1.0); EOSINOPHILS PERCENT AUTO 0.1 % (0.0-6.0); HEMATOCRIT 38.6 % (37.0-47.0); HEMOGLOBIN 13.1 gm/dl (12.0-16.0); IMMATURE GRAN ABSOLUTE AUTO 0.03 K/mm3 (0.00-0.05); IMMATURE GRAN PERCENT AUTO 0.3 % (0.0-0.4); LYMPHOCYTES ABSOLUTE AUTO 1.7 K/mm3 (1.0-4.8); LYMPHOCYTES PERCENT AUTO 16.1 % (24.0-44.0); MEAN CORPUSCULAR HEMOGLOBIN 30.4 pg (28.0-32.0); MEAN CORPUSCULAR HGB CONC 33.9 g/dl (32.0-36.0); MEAN CORPUSCULAR VOLUME 89.6 fl (83.0-99.0); MEAN PLATELET VOLUME 10.2 fl (9.4-12.3); MONOCYTES ABSOLUTE AUTO 0.5 K/mm3 (0.0-0.8); MONOCYTES PERCENT AUTO 5.2 % (0.0-8.0); NEUTROPHILS ABSOLUTE AUTO 8.1 K/mm3 (1.8-7.7); NEUTROPHILS PERCENT AUTO 77.9 % (41.0-71.0); PLATELET COUNT,PLT 380 K/mm3 (150-400); RED BLOOD CELL COUNT 4.31 M/mm3 (4.10-5.30); WHITE BLOOD CELL COUNT,WBC 10.43 K/mm3 (3.9-11.3)
[2023-07-22 19:23] LABS: A/G RATIO 1.1 (1-2); ALBUMIN 4.2 g/dl (3.4-5.0); ANION GAP 17.6 (5-15); BILIRUBIN TOTAL 0.9 mg/dL (0.2-1.0); BUN/CREATININE RATIO 21.7 (14-18); CALCIUM 9.1 mg/dL (8.5-10.1); CREATININE 0.6 mg/dL (0.55-1.02); EST CRCL DRUG DOSING (CG) 120.54 mL/min; POTASSIUM,K 3.6 mEq/L (3.5-5.1); TSH 1.98 uIU/mL (0.358-3.74)
[2023-07-22 19:36] LABS: BARBITURATE SCREEN,URINE NEGATIVE (CUTOFF=200); BENZODIAZEPINES SCREEN,URINE NEGATIVE (CUTOFF=150); BUPRENORPHINE SCREEN,URINE NEGATIVE (CUTOFF=10); METHADONE SCREEN, URINE NEGATIVE (CUTOFF=200); METHAMPHETAMINES SCREEN, URINE NEGATIVE (CUTOFF=500); OXYCODONE SCREEN,URINE NEGATIVE (CUT0FF=100); THC SCREEN,URINE 20 NG/ML NEGATIVE (CUTOFF=50)
[2023-07-22 20:07] LABS: AMPHETAMINES SCREEN, URINE NEGATIVE (CUTOFF=500)
[2023-07-22 22:54] VITALS: BP 109/72; PULSE 80
[2023-07-23] MEDS ORDERED: hydrOXYzine HCl 25 MG Tab PO ONE (12:11)
== END 2023-07-23 21:17 ==
LOC: JD.ED 17:08
DX: F29 Unspecified psychosis not due to a substance or known physiological condition (principal)
CPT/HCPCS: 36415; 80053; 80143; 80179; 80306; 80307; 81025; 84443; 85025; 96372; 99285; A9270; J1630; J2060

== ENCOUNTER 2024-05-24 20:05 | Emergency (ER) | payer MEDICAID ==
[2024-05-24 20:16] VITALS: BP 133/98; PULSE 115
== END 2024-05-24 20:44 | disposition left against medical advice (07) ==
LOC: JD.ED 20:05
DX: Z53.21 Procedure and treatment not carried out due to patient leaving prior to being seen by health care provider (principal)

== ENCOUNTER 2024-05-26 15:32 | Emergency (ER) | payer SELFPAY ==
[2024-05-26 19:46] VITALS: BP 120/74; PULSE 84
== END 2024-05-26 17:20 | disposition home or self-care (01) ==
LOC: JD.ED 15:32
DX: M25.531 Pain in right wrist (principal)
CPT/HCPCS: 99282; 99283

== ENCOUNTER 2024-05-27 17:36 | Emergency (ER) | payer SELFPAY | END 2024-05-27 17:45 | disposition left against medical advice (07) | LOC: JD.ED 17:36 | DX: Z53.21 Procedure and treatment not carried out due to patient leaving prior to being seen by health care provider (principal) ==

== ENCOUNTER 2024-05-27 20:24 | Emergency (ER) | payer SELFPAY ==
[2024-05-27] MEDS: risperiDONE 0.5 MG Tab PO ONE (21:50)
[2024-05-27 22:01] LABS: BASOPHILS PERCENT AUTO 0.3 % (0.0-1.0); HEMATOCRIT 41.4 % (37.0-47.0); HEMOGLOBIN 13.7 gm/dl (12.0-16.0); IMMATURE GRAN ABSOLUTE AUTO 0.03 K/mm3 (0.00-0.05); IMMATURE GRAN PERCENT AUTO 0.2 % (0.0-0.4); LYMPHOCYTES ABSOLUTE AUTO 2.4 K/mm3 (1.0-4.8); LYMPHOCYTES PERCENT AUTO 20.2 % (24.0-44.0); MEAN CORPUSCULAR HEMOGLOBIN 29.2 pg (28.0-32.0); MEAN CORPUSCULAR HGB CONC 33.1 g/dl (32.0-36.0); MEAN CORPUSCULAR VOLUME 88.3 fl (83.0-99.0); MEAN PLATELET VOLUME 9.9 fl (9.4-12.3); MONOCYTES ABSOLUTE AUTO 0.8 K/mm3 (0.0-0.8); MONOCYTES PERCENT AUTO 6.7 % (0.0-8.0); NEUTROPHILS ABSOLUTE AUTO 8.7 K/mm3 (1.8-7.7); NEUTROPHILS PERCENT AUTO 72.6 % (41.0-71.0); PLATELET COUNT,PLT 453 K/mm3 (150-400); RED BLOOD CELL COUNT 4.69 M/mm3 (4.10-5.30); WHITE BLOOD CELL COUNT,WBC 12.04 K/mm3 (3.9-11.3)
[2024-05-27 22:40] LABS: A/G RATIO 1.1 (1-2); ALANINE AMINOTRANSFERASE,ALT 23 U/L (14-59); ALBUMIN 4.6 g/dl (3.4-5.0); ALKALINE PHOSPHATASE 97 U/L (46-116); ANION GAP 15.6 (5-15); ASPARTATE AMNIOTRANSFERASE,AST 24 U/L (15-37); BILIRUBIN TOTAL 1.1 mg/dL (0.2-1.0); BLOOD UREA NITROGEN,BUN 13 mg/dL (7-18); BUN/CREATININE RATIO 21.7 (14-18); CALCIUM 9.5 mg/dL (8.5-10.1); CARBON DIOXIDE,CO2 25 mEq/L (21-32); CHLORIDE,CL 104 mEq/L (98-107); CREATININE 0.6 mg/dL (0.55-1.02); EST CRCL DRUG DOSING (CG) 119.47 mL/min; ESTIMATED GFR 125 mL/min (>60); GLUCOSE RANDOM 85 mg/dL (70-99); POTASSIUM,K 3.6 mEq/L (3.5-5.1); PROTEIN TOTAL,TP 8.7 g/dl (6.4-8.2); SODIUM,NA 141 mEq/L (136-145); TSH 1.273 uIU/mL (0.358-3.74)
[2024-05-27 22:43] LABS: ACETAMINOPHEN 0 ug/mL (10-30); HCG QUANTITATIVE < 1.0 mIU/mL
[2024-05-27 23:29] LABS: BARBITURATE SCREEN,URINE NEGATIVE (CUTOFF=200); BENZODIAZEPINES SCREEN,URINE NEGATIVE (CUTOFF=150); BUPRENORPHINE SCREEN,URINE NEGATIVE (CUTOFF=10); METHADONE SCREEN, URINE NEGATIVE (CUTOFF=200); METHAMPHETAMINES SCREEN, URINE NEGATIVE (CUTOFF=500); OXYCODONE SCREEN,URINE NEGATIVE (CUT0FF=100); THC SCREEN,URINE 20 NG/ML NEGATIVE (CUTOFF=50)
[2024-05-27 23:30] LABS: AMPHETAMINES SCREEN, URINE NEGATIVE (CUTOFF=500)
[2024-05-28] MEDS: risperiDONE 0.5 MG Tab PO ONE (00:41)
[2024-05-28] MEDS: QUEtiapine 25 MG Tab PO ONE (08:45)
[2024-05-28] MEDS: Haloperidol Lactate 5 MG/ML SDV IM ONE (08:55)
[2024-05-28] MEDS: LORazepam 2 MG/ML SDV IM ONE (13:30)
[2024-05-28 18:27] VITALS: BP 90/50; PULSE 84
== END 2024-05-28 16:51 ==
LOC: JD.ED 20:24
DX: F20.9 Schizophrenia, unspecified (principal); F29 Unspecified psychosis not due to a substance or known physiological condition
CPT/HCPCS: 36415; 71045; 71045-26; 80053; 80143; 80179; 80306; 80307; 84443; 84702; 85025; 93005; 93010; 96372; 99285; A9270-GY; J1630; J2060

== ENCOUNTER 2025-05-31 13:10 | Emergency (ER) | payer MEDICAID ==
[2025-05-31 13:47] VITALS: BP 127/84; PULSE 81
[2025-05-31 14:21] LABS: BASOPHILS ABSOLUTE AUTO 0.0 K/mm3 (0.0-0.2); BASOPHILS PERCENT AUTO 0.3 % (0.0-1.0); EOSINOPHILS ABSOLUTE AUTO 0.0 K/mm3 (0.0-0.4); EOSINOPHILS PERCENT AUTO 0.3 % (0.0-6.0); IMMATURE GRAN ABSOLUTE AUTO 0.03 K/mm3 (0.00-0.05); IMMATURE GRAN PERCENT AUTO 0.3 % (0.0-0.4); LYMPHOCYTES ABSOLUTE AUTO 2.0 K/mm3 (1.0-4.8); LYMPHOCYTES PERCENT AUTO 16.6 % (24.0-44.0); MEAN PLATELET VOLUME 9.9 fl (9.4-12.3); MONOCYTES ABSOLUTE AUTO 0.8 K/mm3 (0.0-0.8); MONOCYTES PERCENT AUTO 6.8 % (0.0-8.0); NEUTROPHILS ABSOLUTE AUTO 9.0 K/mm3 (1.8-7.7); NEUTROPHILS PERCENT AUTO 75.7 % (41.0-71.0); NRBC ABSOLUTE 0.00 (0.00-0.02); NRBC PERCENT 0.0 % (0.0-0.2); PLATELET COUNT,PLT 416 K/mm3 (150-400); RED BLOOD CELL COUNT 4.53 M/mm3 (4.10-5.30); WHITE BLOOD CELL COUNT,WBC 11.92 K/mm3 (3.9-11.3)
[2025-05-31 14:37] LABS: BUPRENORPHINE SCREEN,URINE NEGATIVE (CUTOFF=10); METHADONE SCREEN, URINE NEGATIVE (CUTOFF=200); METHAMPHETAMINES SCREEN, URINE NEGATIVE (CUTOFF=500); OXYCODONE SCREEN,URINE NEGATIVE (CUT0FF=100); THC SCREEN,URINE 20 NG/ML NEGATIVE (CUTOFF=50)
[2025-05-31 14:46] LABS: AMPHETAMINES SCREEN, URINE NEGATIVE (CUTOFF=500)
[2025-05-31 15:02] LABS: A/G RATIO 1.0 (1-2); ALANINE AMINOTRANSFERASE,ALT 24.0 U/L (14-59); ASPARTATE AMNIOTRANSFERASE,AST 17.0 U/L (15-37); BILIRUBIN TOTAL 1.0 mg/dL (0.2-1.0); BLOOD UREA NITROGEN,BUN 12.0 mg/dL (7-18); CARBON DIOXIDE,CO2 24.0 mEq/L (21-32); CHLORIDE,CL 104.0 mEq/L (98-107); CREATINE KINASE,CK 71.0 U/L (26-192); CREATININE 0.5 mg/dL (0.55-1.02); EST CRCL DRUG DOSING (CG) 165.96 mL/min; ESTIMATED GFR 129.0 mL/min (>60); GLUCOSE RANDOM 90.0 mg/dL (70-99); POTASSIUM,K 3.6 mEq/L (3.5-5.1); PROTEIN TOTAL,TP 7.7 g/dl (6.4-8.2); SODIUM,NA 137.0 mEq/L (136-145)
== END 2025-05-31 15:10 ==
LOC: JD.ED 13:10
DX: R45.851 Suicidal ideations (principal); Z73.9 Problem related to life management difficulty, unspecified
CPT/HCPCS: 36415; 80053; 80143; 80179; 80306; 82550; 83690; 83735; 84703; 85025; 99283